=== PATIENT | male | born 2000 | race Caucasian/White ===

== ENCOUNTER 2018-07-15 19:15 | Emergency (ER) | payer SELFPAY ==
[2018-07-15 19:28] VITALS: BP 134/79; PULSE 84; RESP 16; TEMP 97.9; O2SAT 96
--- NOTE | 2018-07-15 20:33 | C.PDOC ---
History Of Present Illness 18 year old male presents to the ED complaining of tingling sensation to left mid chest, left upper back radiating to left shoulder and left arm. Reports the sensation has been going on intermittently for one week with pain and is worse with movement. Kamlesh States he went to another institution last week and was advised to take over the counter analgesics but denies taking any medications. Notes he felt numbness from his left forearm to left hand and fingers today which prompted the ED visit. Pt denies chest pain, SOB, palpitations, headache, dizziness, weakness, trauma or heavy lifting Time Seen by Provider: 07/15/18 19:38 Chief Complaint (Nursing): Upper Extremity Problem/Injury Past Medical History Vital Signs: Last Vital Signs Temp 97.9 F 07/15/18 19:22 Pulse 84 07/15/18 19:22 Resp 16 07/15/18 19:22 BP 134/79 07/15/18 19:22 Pulse Ox 96 07/15/18 19:22 Family History: States: Unknown Family Hx - Social History Hx Tobacco Use: No Hx Alcohol Use: Yes Hx Substance Use: No - Immunization History Hx Tetanus Toxoid Vaccination: Yes Hx Influenza Vaccination: Yes Hx Pneumococcal Vaccination: No Review Of Systems Except As Marked, All Systems Reviewed And Found Negative. Cardiovascular: Negative for: Chest Pain, Palpitations Respiratory: Negative for: Shortness of Breath Neurological: Positive for: Numbness (left forearm and hand), Other (tingling sensation to left mid chest and upper back radiating to left shoulder and arm ). Negative for: Weakness Physical Exam - Physical Exam Appears: Non-toxic, Other (appears anxious) Skin: Warm, Dry, No Rash Head: Normacephalic Eye(s): bilateral: Normal Inspection Nose: Normal Oral Mucosa: Moist Neck: Normal ROM, Supple Chest: Symmetrical Cardiovascular: Rhythm Regular, No Murmur Respiratory: Normal Breath Sounds, No Rales, No Rhonchi, No Wheezing Gastrointestinal/Abdominal: Soft, No Tenderness Extremity: Normal ROM, No Deformity, No Swelling Neurological/Psych: Oriented x3, Normal Speech, Normal Motor, Normal Sensation, Normal Reflexes Gait: Steady ED Course And Treatment ECG: Interpreted By Me, Viewed By Me ECG Interpretation: No Acute Changes Interpretation Of ECG: No ST/T changes Rate From EC O2 Sat by Pulse Oximetry: 96 (RA) Pulse Ox Interpretation: Normal Progress Note: Patient given Toradol. On reeval, patient reports feeling much better. Instructed to follow up with clinic. Given Rx for Motrin. Disposition Counseled Patient/Family Regarding: Diagnosis, Need For Followup, Rx Given - Disposition Referrals: [facility] [Outside] Disposition: HOME/ ROUTINE Disposition Time: 20:31 Condition: STABLE Additional Instructions: Please follow up in clinic Take motrin for pain Return to ER if worse Prescriptions: Ibuprofen [Motrin] 600 mg PO Q6H #20 tab Instructions: Muscle and Bone Pain (DC) Forms: [employer] ([place] Verdean) - Clinical Impression Clinical Impression: Musculoskeletal pain, Anxiety - PA / [employer] OPERATOR / Resident Statement MD/DO has reviewed & agrees with the documentation as recorded. - Scribe Statement The provider has reviewed the documentation as recorded by the Scribjavier Spears All medical record entries made by the Vijiibjavier were at my direction and personally dictated by me. I have reviewed the chart and agree that the record accurately reflects my personal performance of the history, physical exam, medical decision making, and the department course for this patient. I have also personally directed, reviewed, and agree with the discharge instructions and disposition.
--- NOTE | 2018-07-16 12:44 | CARD ---
APPROVED REPORT Date of service: 07/15/2018 EKG Measurement Heart [id number] <Conclusion> Normal sinus rhythm Normal ECG
== END 2018-07-15 20:37 | disposition home or self-care (01) ==
LOC: C.ER 19:15
DX: F41.9 Anxiety disorder, unspecified (principal); M79.18 Myalgia, other site
CPT/HCPCS: 93005; 96372; 99285; J1885